=== PATIENT | female | born 1955 | race Caucasian/White ===

== ENCOUNTER 2019-10-09 09:27 | Outpatient (CLI) | payer OTHER, SELFPAY ==
--- NOTE | ~2019-10-09 | MM_ITS ---
EXAMINATION: MM screening adrian BI w kike HISTORY: Screening mammogram TECHNIQUE: Craniocaudal and mediolateral oblique 3-D tomosynthesis images were obtained and synthetic 2-D images were generated. CAD analysis was submitted and interpreted. COMPARISON: 12/12/2011 bilateral digital screening mammogram BREAST PARENCHYMAL COMPOSITION: The breasts are almost entirely fatty. FINDINGS: Occasional benign calcifications. New 5 mm opacity in the lower outer quadrant of left breast similar diagnostic left mammogram and lef t breast ultrasound examination are recommended. Otherwise there is no evidence of suspicious mass, calcification, or architectural distortion to sugg est malignancy in either breast. There has been no suspicious interval change. IMPRESSION: 1. New 5 mm opacity at lower outer quadrant of left breast 2. Diagnostic left mammogram and left breast ultrasound examination are recommended. BI-RADS Category 0: Incomplete: Needs additional imaging evaluation. Reviewed, dictated and finalized at location A. IMPRESSION: 1. New 5 mm opacity at lower outer quadrant of left breast 2. Diagnostic left mammogram and left breast ultrasound examination are recomme nded. BI-RADS Category 0: Incomplete: Needs additional imaging evaluation.
== END 2019-10-09 09:28 | disposition home or self-care (01) ==
LOC: ANHIMG 09:30
PROVIDERS: PCP Internal Medicine; Visit Provider Internal Medicine
DX: Z12.31 Encounter for screening mammogram for malignant neoplasm of breast (principal); R92.8 Other abnormal and inconclusive findings on diagnostic imaging of breast
CPT/HCPCS: 77063; 77067

== ENCOUNTER 2019-10-23 10:56 | Outpatient (CLI) | payer OTHER, SELFPAY ==
--- NOTE | ~2019-10-23 | MMUS_ITS ---
EXAMINATION: MM diagnostic mammo unilat LT, US breast LT limited HISTORY: New 5 mm mammographic opacity reported at lower outer quadrant of left breast on 6 10/09/2019 screening mammogram TECHNIQUE: Additional 3-D tomosynthesis images of the left breast were performed and synthetic 2-D im ages were generated. CAD analysis was submitted and interpreted. High resolution targeted lower outer quadrant left breast ultrasound was performed. COMPARISON: 10/09/2019 bilateral digital screening mammogram FINDINGS: MAMMOGRAPHIC FINDINGS: An approximately 5-6 mm circumscribed low-density opacity is confirmed in the lower outer quadrant of left breast at mid anteroposterior depth. ULTRASOUND: At 4:00 6 cm from the nipple corresponding to the mammographic abnormality is an oval 2.5 x 5.5 mm hy poechoic lesion without internal vascularity or posterior shadowing. The margins appear mildly irregu lar/serrated. I would recommend ultrasound-guided attempted aspiration; should aspiration not resolve this lesion, then immediate ultrasound-guided biopsy should be performed. IMPRESSION: 1. 2.5 x 5.5 mm mildly irregular hypoechoic lesion at 4:00 6 cm from nipple 2. Ultrasound-guided aspiration and if necessary biopsy is recommended BI-RADS category 4, suspicious findings. Dr. Cornejo telephoned the report to Dr. Herrera through Dr. Herrera's after hours service on 10/23/2019 at 1225 hours. Reviewed, dictated and finalized at location A. IMPRESSION: 1. 2.5 x 5.5 mm mildly irregular hypoechoic lesion at 4:00 6 cm from nipple 2. Ultrasound-guided aspiration and if necessary biopsy is recommended BI-RADS category 4, suspicious findings. Dr. Cornejo telephoned the report to Dr. Herrera through Dr. Herrera's after [facility] service on 10/23/2019 at 1225 hours. IMPRESSION: 1. 2.5 x 5.5 mm mildly irregular hypoechoic lesion at 4:00 6 cm from nipple 2. Ultrasound-guided aspiration and if necessary biopsy is recommended BI-RADS category 4, suspicious findings. Dr. Cornejo telephoned the report to Dr. Herrera through Dr. Herrera's after [facility] service on 10/23/2019 at 1225 hours.
== END 2019-10-23 10:57 | disposition home or self-care (01) ==
LOC: ANHIMG 10:57
PROVIDERS: PCP Internal Medicine; Visit Provider Internal Medicine
DX: R92.8 Other abnormal and inconclusive findings on diagnostic imaging of breast (principal)
CPT/HCPCS: 76642; 77065

== ENCOUNTER 2019-10-30 09:33 | Outpatient (CLI) | payer OTHER, SELFPAY ==
--- NOTE | ~2019-10-30 | US_ITS ---
US breast LT limited DATE: 10/30/2019 10:24 INDICATION: 2.5 x 5.5 mm mm circumscribed hypoechoic mass in the lower outer quadrant of left breast at 4:00 TECHNIQUE: Real-time imaging targeted to 4:00 6 cm from nipple COMPARISON: 10/23/2019 limited left breast ultrasound and diagnostic left mammogram FINDINGS: There is a circumscribed smooth sonolucent approximately 2.8 x 4.7 mm lesion at 4:00 6 cm f rom the nipple with minimal internal septation, most likely a benign minimally septated cyst. I discussed the findings with the patient and the high likelihood that this is benign. She was reliev ed to avoid any needlestick. I recommended that she return for a six-month follow-up targeted ultraso und at this area, to which she was readily accepting and relieved. IMPRESSION: BI-RADS Category 3: Probably benign finding. Probable minimally septated benign cyst at 4 :00 6 cm from nipple Recommendation: 6 month targeted 4:00 left breast ultrasound follow-up Reviewed, dictated and finalized at Location A. Reviewed, dictated and finalized at location A. IMPRESSION: BI-RADS Category 3: Probably benign finding. Probable minimally sep tated benign cyst at 4:00 6 cm from nipple Recommendation: 6 month targeted 4:00 left breast ultrasound follow-up
== END 2019-10-30 09:34 | disposition home or self-care (01) ==
PROVIDERS: PCP Internal Medicine; Visit Provider Internal Medicine
DX: R92.8 Other abnormal and inconclusive findings on diagnostic imaging of breast (principal)
CPT/HCPCS: 76642

== ENCOUNTER 2019-11-20 07:17 | Outpatient (CLI) | payer OTHER, SELFPAY ==
[2019-11-20 07:46] LABS: Basophils Percent Auto 0.6 % (0.2-1.2); Eosinophils Absolute Auto 0.1 K/mm3 (0-0.3); Eosinophils Percent Auto 1.4 % (0-4.4); Hematocrit 40.7 % (37.0-47.0); Immature Granulocyte Absolute 0.01 K/mm3 (0.00-0.031); Immature Granulocyte Percent A 0.2 % (0-0.5); Lymphocytes Absolute Auto 2.59 K/mm3 (0.9-3.2); Lymphocytes Percent Auto 39.1 % (18.3-44.2); Mean Corpuscular HGB Conc 31.9 g/dl (32-36); Mean Corpuscular Hemoglobin 26.9 pg (26-34); Mean Corpuscular Volume 84.3 fl (80-100); Mean Platelet Volume 9.8 fl (7.4-10.4); Monocytes Absolute Auto 0.5 K/mm3 (0.1-0.6); Monocytes Percent Auto 7.6 % (2.6-8.5); Neutrophils Absolute Auto 3.4 K/mm3 (1.3-6.7); Neutrophils Percent Auto 51.1 % (45.5-73.1); Platelet Count Result 298 k/mm3 (150-375); Red Blood Count 4.83 M/mm3 (4.2-5.4); Red Cell Distribution Width 13.6 % (11.5-14.5); White Blood Count 6.6 K/mm3 (4.5-10.0)
[2019-11-20 08:09] LABS: Alanine Aminotransferase 26 U/L (4-35); Alkaline Phosphatase 97 U/L (38-126); Aspartate Amino Transferase 36 U/L (14-36); Bilirubin,Total 0.5 mg/dL (0.2-1.3); Blood Urea Nitrogen 12 mg/dL (7-17); Calcium 9.1 mg/dL (8.4-10.2); Carbon Dioxide 28 mmol/L (22-30); Chloride 103 mmol/L (98-107); Cholesterol 206 mg/dL (0-200); Estimated Glomerular Filt Rate > 60; Glucose 86 mg/dL (65-105); HDL Direct 55 mg/dL; Magnesium 1.8 mg/dL (1.6-2.3); Potassium 3.6 mmol/L (3.4-5.0); Sodium 138 mmol/L (137-145); Triglycerides 200 mg/dL (<150)
[2019-11-20 08:18] LABS: Erythrocyte Sedimentation Rate 7 mm/hr (0-20)
[2019-11-20 08:20] LABS: LDL Cholesterol Direct 119 mg/dL
[2019-11-20 08:39] LABS: Thyroid Stimulating Hormone < 0.015 uIU/mL (0.465-4.680)
[2019-11-20 08:44] LABS: Free T4 Free Thyroxine 1.31 ng/mL (0.78-2.19)
== END 2019-11-20 07:18 | disposition home or self-care (01) ==
PROVIDERS: PCP Internal Medicine; Visit Provider Internal Medicine
DX: R53.83 Other fatigue (principal); E03.9 Hypothyroidism, unspecified; R51 Headache; I10 Essential (primary) hypertension; E78.5 Hyperlipidemia, unspecified
CPT/HCPCS: 36415; 80053; 80061; 83735; 84439; 84443; 85025; 85652

== ENCOUNTER 2020-02-15 14:36 | Outpatient (CLI) | payer OTHER, SELFPAY ==
[2020-02-15 15:05] LABS: Basophils Absolute Auto 0.1 K/mm3 (0.0-0.1); Basophils Percent Auto 0.6 % (0.2-1.2); Eosinophils Absolute Auto 0.1 K/mm3 (0-0.3); Eosinophils Percent Auto 1.4 % (0-4.4); Hematocrit 41.6 % (37.0-47.0); Hemoglobin 13.2 g/dL (12.0-15.0); Immature Granulocyte Absolute 0.03 K/mm3 (0.00-0.031); Immature Granulocyte Percent A 0.3 % (0-0.5); Lymphocytes Absolute Auto 3.83 K/mm3 (0.9-3.2); Lymphocytes Percent Auto 40.4 % (18.3-44.2); Mean Corpuscular HGB Conc 31.7 g/dl (32-36); Mean Corpuscular Volume 85.2 fl (80-100); Mean Platelet Volume 10.2 fl (7.4-10.4); Monocytes Absolute Auto 0.7 K/mm3 (0.1-0.6); Monocytes Percent Auto 7.3 % (2.6-8.5); Neutrophils Absolute Auto 4.7 K/mm3 (1.3-6.7); Platelet Count Result 337 k/mm3 (150-375); Red Blood Count 4.88 M/mm3 (4.2-5.4); Red Cell Distribution Width 13.7 % (11.5-14.5); White Blood Count 9.5 K/mm3 (4.5-10.0)
[2020-02-15 15:23] LABS: Alanine Aminotransferase 33 U/L (4-35); Alkaline Phosphatase 136 U/L (38-126); Anion Gap 9 mmol/L (8-16); Aspartate Amino Transferase 38 U/L (14-36); Bilirubin,Total 0.3 mg/dL (0.2-1.3); Blood Urea Nitrogen 13 mg/dL (7-17); Calcium 9.1 mg/dL (8.4-10.2); Carbon Dioxide 30 mmol/L (22-30); Chloride 104 mmol/L (98-107); Estimated Glomerular Filt Rate > 60; Glucose 105 mg/dL (65-105); Potassium 3.7 mmol/L (3.4-5.0); Sodium 143 mmol/L (137-145)
[2020-02-15 15:33] LABS: Erythrocyte Sedimentation Rate 15 mm/hr (0-20)
[2020-02-15 15:52] LABS: Thyroid Stimulating Hormone < 0.015 uIU/mL (0.465-4.680)
[2020-02-15 16:16] LABS: Free T4 Free Thyroxine 1.11 ng/mL (0.78-2.19)
== END 2020-02-15 14:37 | disposition home or self-care (01) ==
PROVIDERS: PCP Internal Medicine; Visit Provider Internal Medicine
DX: E03.9 Hypothyroidism, unspecified (principal); L29.9 Pruritus, unspecified; R53.83 Other fatigue
CPT/HCPCS: 36415; 80053; 84439; 84443; 85025; 85652; 86038

== ENCOUNTER 2020-09-16 11:16 | Outpatient (CLI) | payer OTHER, SELFPAY ==
--- NOTE | ~2020-09-16 | US_ITS ---
US breast LT limited DATE: 09/16/2020 11:06 INDICATION: Six-month targeted follow-up of 4:00 lesion was recommended on 10/30/2019 limited left sammy ast ultrasound examination TECHNIQUE: Targeted ultrasound of left breast at 4:00 6 cm from nipple COMPARISON: 10/30/2019 limited left breast ultrasound examination FINDINGS: 4:00 6 cm from nipple: Sonolucent 3.1 x 0.7 x 3.1 mm lesion without internal vascularity or shadowing, diminished in size compared to 2.8 x 4.7 mm measurement on 10/23/2019. The sonographic features are consistent with benign process; diminished size since 10/23/2019 further s upports benign diagnosis. IMPRESSION: BI-RADS Category 2: Benign Recommendation: Routine mammographic screening Reviewed, dictated and finalized at Location A. Reviewed, dictated and finalized at location A.
[2020-09-16 11:50] LABS: Basophils Absolute Auto 0.1 K/mm3 (0.0-0.1); Basophils Percent Auto 0.5 % (0.2-1.2); Eosinophils Absolute Auto 0.2 K/mm3 (0-0.3); Eosinophils Percent Auto 1.6 % (0-4.4); Hematocrit 40.2 % (37.0-47.0); Hemoglobin 12.7 g/dL (12.0-15.0); Immature Granulocyte Absolute 0.04 K/mm3 (0.00-0.031); Immature Granulocyte Percent A 0.4 % (0-0.5); Lymphocytes Absolute Auto 3.39 K/mm3 (0.9-3.2); Lymphocytes Percent Auto 33.8 % (18.3-44.2); Mean Corpuscular HGB Conc 31.6 g/dl (32-36); Mean Corpuscular Hemoglobin 27.8 pg (26-34); Mean Platelet Volume 10.2 fl (7.4-10.4); Monocytes Absolute Auto 0.6 K/mm3 (0.1-0.6); Monocytes Percent Auto 6.4 % (2.6-8.5); Neutrophils Absolute Auto 5.8 K/mm3 (1.3-6.7); Neutrophils Percent Auto 57.3 % (45.5-73.1); Platelet Count Result 300 k/mm3 (150-375); Red Blood Count 4.57 M/mm3 (4.2-5.4); Red Cell Distribution Width 14.5 % (11.5-14.5)
[2020-09-16 12:01] LABS: Alanine Aminotransferase 17 U/L (4-35); Albumin Level 4.2 g/dL (3.5-5.1); Alkaline Phosphatase 105 U/L (38-126); Anion Gap 5 mmol/L (8-16); Aspartate Amino Transferase 35 U/L (14-36); Bilirubin,Total 0.5 mg/dL (0.2-1.3); Blood Urea Nitrogen 14 mg/dL (7-17); Calcium 9.1 mg/dL (8.4-10.2); Carbon Dioxide 31 mmol/L (22-30); Chloride 104 mmol/L (98-107); Cholesterol 233 mg/dL (0-200); Estimated Glomerular Filt Rate > 60; Glucose 90 mg/dL (65-105); HDL Direct 59 mg/dL; Potassium 3.9 mmol/L (3.4-5.0); Sodium 140 mmol/L (137-145); Triglycerides 237 mg/dL (<150)
[2020-09-16 12:12] LABS: LDL Cholesterol Direct 136 mg/dL
[2020-09-16 12:59] LABS: Free T4 Free Thyroxine 0.51 ng/mL (0.78-2.19)
[2020-09-16 13:12] LABS: Folic Acid > 20.0 ng/mL (2.76->20)
== END 2020-09-16 11:17 | disposition home or self-care (01) ==
PROVIDERS: PCP Internal Medicine; Visit Provider Internal Medicine
DX: R93.89 Abnormal findings on diagnostic imaging of other specified body structures (principal); R53.83 Other fatigue; I10 Essential (primary) hypertension; E03.9 Hypothyroidism, unspecified; R79.89 Other specified abnormal findings of blood chemistry; R92.8 Other abnormal and inconclusive findings on diagnostic imaging of breast
CPT/HCPCS: 36415; 76642; 80053; 80061; 82607; 82746; 84439; 84443; 85025

== ENCOUNTER → 2020-09-30 11:07 | Outpatient (CLI) | payer OTHER, SELFPAY ==
--- NOTE | ~2020-09-30 | XR_ITS ---
XR shoulder RT min 2V DATE: 09/30/2020 11:38 INDICATION: Right shoulder pain TECHNIQUE: 5 views COMPARISON: 09/24/2011 right shoulder FINDINGS: There is degenerative spurring at the right acromioclavicular joint. No fracture or dislocation, periosteal reaction or bone destruction or abnormal soft tissue calcifica tion. Diffuse osteopenia. IMPRESSION: Degenerative spurring of the acromioclavicular joint Osteopenia Reviewed, dictated and finalized at location A.
== END ==
PROVIDERS: Visit Provider Internal Medicine
DX: M25.511 Pain in right shoulder (principal); M85.811 Other specified disorders of bone density and structure, right shoulder
CPT/HCPCS: 73030

== ENCOUNTER 2020-12-10 16:40 | Emergency (ER) | payer OTHER, MEDICARE, SELFPAY ==
--- NOTE | ~2020-12-10 | CT_ITS ---
EXAMINATION: CT abdomen pelvis wo con EXAM DATE: 12/10/2020 18:26 INDICATION: Left flank pain. TECHNIQUE: Spiral CT of the abdomen and pelvis was performed without contrast. Axial, coronal and sag ittal images were reviewed. The dose-length product (DLP) for this examination was 651.11 mGy-cm. T he exposure was tailored according to patient size (auto mA exposure control), and iterative reconstr uction (ASIR) was used as additional dose reduction technique. There is no prior study for compariso n. FINDINGS: There is no nephrolithiasis or hydronephrosis. The uterus is not identified and has likel y been surgically resected. The bladder is unremarkable. There is a left liver lobe cyst measuring 3.6 cm. Liver, spleen, pancreas and adrenal glands are otherwise unremarkable. There are cholecystec see clips. There is no retroperitoneal or pelvic lymphadenopathy. There is mild scattered arterio sclerotic disease. The appendix is normal. There is mild sigmoid colonic diverticulosis. There is no adjacent inflammat ory change to suggest diverticulitis. The stomach and small bowel are unremarkable. There is expecte d amount of colonic stool. No free intraperitoneal gas. The heart is normal in size. There are n o pericardial or pleural effusions. The lung bases are unremarkable. There are no osteoblastic or o steolytic lesions identified. There is mild lumbar levoscoliosis. IMPRESSION: 1. No nephrolithiasis, hydronephrosis or acute intra-abdominal findings. 2. Mild sigmoid diverticulosis. Reviewed, dictated and finalized at location A.
[2020-12-10 16:42] VITALS: BP 147/88; PULSE 67; RESP 18; TEMP 36.6; O2SAT 98
[2020-12-10 17:50] LABS: Basophils Absolute Auto 0.1 K/mm3 (0.0-0.1); Basophils Percent Auto 0.7 % (0.2-1.2); Eosinophils Absolute Auto 0.2 K/mm3 (0-0.3); Eosinophils Percent Auto 1.7 % (0-4.4); Hematocrit 41.1 % (37.0-47.0); Hemoglobin 12.9 g/dL (12.0-15.0); Immature Granulocyte Absolute 0.02 K/mm3 (0.00-0.031); Immature Granulocyte Percent A 0.2 % (0-0.5); Lymphocytes Absolute Auto 4.41 K/mm3 (0.9-3.2); Lymphocytes Percent Auto 50.5 % (18.3-44.2); Mean Corpuscular HGB Conc 31.4 g/dl (32-36); Mean Corpuscular Hemoglobin 26.7 pg (26-34); Mean Corpuscular Volume 84.9 fl (80-100); Mean Platelet Volume 10.8 fl (7.4-10.4); Monocytes Absolute Auto 0.6 K/mm3 (0.1-0.6); Monocytes Percent Auto 6.8 % (2.6-8.5); Neutrophils Absolute Auto 3.5 K/mm3 (1.3-6.7); Neutrophils Percent Auto 40.1 % (45.5-73.1); Platelet Count Result 326 k/mm3 (150-375); Red Blood Count 4.84 M/mm3 (4.2-5.4); Red Cell Distribution Width 14.8 % (11.5-14.5); White Blood Count 8.7 K/mm3 (4.5-10.0)
[2020-12-10 17:54] LABS: Add Urine Microscopic? YES; Appearance Urine Clear (Clear); Bilirubin Urine Negative (Negative); Blood Urine Negative (Negative); Calcium Oxalate Crystals Urine Present /hpf; Color Urine Amber (Yellow); Glucose Urine UA Negative (Negative); Ketones Urine Negative (Negative); Leukocyte Esterase Ur 1+ LEU/UL (Negative); Mucus Urine Moderate /lpf; Nitrate Urine Negative (Negative); Protein Urine 1+ mg/dL (Negative); Squamous Epithelial Cell Urine Occasional /hpf (Few)
[2020-12-10 17:59] LABS: Anion Gap 9 mmol/L (8-16); Blood Urea Nitrogen 10 mg/dL (7-17); Carbon Dioxide 25 mmol/L (22-30); Chloride 105 mmol/L (98-107); Estimated CRCL calculation 98 ml/min; Estimated Glomerular Filt Rate > 60; Glucose 81 mg/dL (65-110); Potassium 3.7 mmol/L (3.4-5.0); Sodium 139 mmol/L (137-145)
[2020-12-10 18:07] LABS: Specific Grav Ur 1.034 (1.001-1.035)
[2020-12-10] MEDS: ONDANSETRON INJ 4 MG/2 ML VIAL IV PUSH (18:55)
[2020-12-10] MEDS: MORPHINE SULFATE (*CRX) 2 MG/ML INJ IV PUSH (18:55)
[2020-12-10 19:09] VITALS: BP 139/78; PULSE 84; RESP 16; O2SAT 98
--- NOTE | 2020-12-10 19:31 | ED.GENADULT ---
HPI - General Adult General Chief complaint: Back Pain/Injury Stated complaint: back pain and sob Time Seen by Provider: 12/10/20 17:02 Source: patient Mode of arrival: ambulatory Limitations: no limitations History of Present Illness HPI narrative: Patient is a 65 year old female who presents complaining of left flank pain intermittent x 1 week. Denies urinary complaints. Denies known injury, however, reports that patient does often work in yard. Patient denies taking otc medications for pain prior to arrival but has been using heat pack. Patient has a history of dementia and is unable to detail all complaints. Related Data Home Medications Medication Instructions Recorded Confirmed citalopram mg 12/10/20 donepezil mg 12/10/20 memantine mg 12/10/20 Allergies Allergy/AdvReac Type Severity Reaction Status Date / Time amoxicillin Allergy Intermediate Vomiting Verified 12/10/20 16:45 Review of Systems Review of Systems: Narrative: CONSTITUTIONAL: Denies fever, chills, or sweats. EYES: Denies visual changes, redness, or discharge. ENT: Denies rhinorrhea, congestion, sore throat, or otalgia. CARDIOVASCULAR: Denies chest pain, palpitations, or edema. RESPIRATORY: Denies cough or dyspnea. GASTROINTESTINAL: Denies abdominal pain, nausea, vomiting, or diarrhea. GENITOURINARY: Denies dysuria or hematuria. SKIN: Denies rash or itching. MUSCULOSKELETAL: Reports left flank/back pain NEUROLOGIC: Denies headache, numbness, dizziness, or weakness. PSYCHIATRIC: Denies anxiety or depression. [facility] Family History Family History Father Patient's father is Sibling Patient's brother is in good health Other Diabetes mellitus Family history of arthritis Family history of malignant neoplasm Hypertension Social History Social History Smoking status: Former smoker Second hand tobacco smoke exposure: No Smoking end date: 05/20/87 Alcohol intake: current Substance use: never Gender identity (if verbalized by the patient): Female Comments At the time of signature, I have reviewed and agree with nursing past medical, surgical, social, and family history unless otherwise noted. Please see nursing chart for further information. There is no relevant family history pertinent to the presenting complaint. Exam Narrative: Exam Narrative: GENERAL: Well-appearing, well-nourished, and in no acute distress. HEAD: Normocephalic, atraumatic. EYES: EOMI. No redness or drainage. Conjunctiva are normal. ENT: Mucous membranes pink and moist. CHEST: No respiratory distress. HEART: Regular rate and rhythm. GI: Soft, nontender without rebound, or guarding. No distention. Left CVA tenderness noted with palpation MUSCULOSKELETAL: No bony tenderness. EXTREMITIES: Normal range of motion. No edema. SKIN: Warm, dry, no rash. NEURO: No focal deficits. Alert and oriented x3. Gait steady. PSYCH: Normal affect. No signs of depression or anxiety. Course Vital Signs Vital signs: Vital Signs Temperature 36.6 C 12/10/20 16:42 Pulse Rate 67 12/10/20 16:42 Respiratory Rate 18 12/10/20 16:42 Blood Pressure 147/88 H 12/10/20 16:42 Pulse Oximetry 98 12/10/20 16:42 Temperature 36.6 C 12/10/20 16:42 Pulse Rate 84 12/10/20 19:09 Respiratory Rate 16 12/10/20 19:09 Blood Pressure 139/78 12/10/20 19:09 Pulse Oximetry 98 12/10/20 19:09 Reviewed-patient is informed that they may have pre-hypertension or hypertension based on a blood pressure reading. I recommend the patient call the primary care provider listed on their discharge instructions or a physician of their choice this week to arrange follow-up for further evaluation of possible pre-hypertension or hypertension. Medical Decision Making MDM Narrative Medical decision making narrative: Patient's labs are unremar
[2020-12-10] MEDS: CYCLOBENZAPRINE HCL 10 MG TABLET PO (19:37)
[2020-12-10] MEDS: KETOROLAC 30 MG/ML VIAL (*BKC) IV PUSH (19:37)
== END 2020-12-10 19:47 | disposition home or self-care (01) ==
PROVIDERS: Emergency Medicine; Emergency Provider Nurse Practitioner; PCP Internal Medicine
DX: M54.9 Dorsalgia, unspecified (principal); F03.90 Unspecified dementia, unspecified severity, without behavioral disturbance, psychotic disturbance, mood disturbance, and anxiety; Z87.891 Personal history of nicotine dependence; R03.0 Elevated blood-pressure reading, without diagnosis of hypertension; K57.30 Diverticulosis of large intestine without perforation or abscess without bleeding
CPT/HCPCS: 36415; 74176; 80048; 81001; 85025; 96374; 96375; 99284; A9270; J1885; J2270; J2405

== ENCOUNTER → 2021-02-28 15:56 | Outpatient (CLI) | payer OTHER, MEDICARE, SELFPAY ==
--- NOTE | ~2021-02-28 | XR_ITS ---
XR hip LT min 2V DATE: 02/28/2021 16:25 INDICATION: Left hip pain TECHNIQUE: AP and lateral views COMPARISON: None FINDINGS: There is diffuse osteopenia. There is levoscoliosis and degenerative disc disease of the lumbar spine. No fracture or dislocation, avascular necrosis or bone destruction. There is normal left hip joint space. IMPRESSION: Osteopenia; no fracture or dislocation Reviewed, dictated and finalized at location B.
== END ==
PROVIDERS: PCP Internal Medicine; Visit Provider Internal Medicine
DX: M85.852 Other specified disorders of bone density and structure, left thigh (principal)
CPT/HCPCS: 73502

== ENCOUNTER → 2021-03-14 15:20 | Outpatient (CLI) | payer OTHER, MEDICARE, SELFPAY ==
--- NOTE | ~2021-03-14 | XR_ITS ---
XR shoulder RT min 2V, XR humerus RT 03/14/2021 16:48 Indication: Right shoulder normal pain Procedure: 4 views right shoulder and 2 views right humerus Comparison: No prior studies for comparison. Findings: There is mild osteoarthritis of the acromioclavicular joint. Osteopenia. Calcified granulom a right lower lung zone. No fracture, subluxation or dislocation. Impression: 1: No acute bone or joint abnormality. Reviewed, dictated and finalized at location A. Impression: 1: No acute bone or joint abnormality. Impression: 1: No acute bone or joint abnormality.
--- NOTE | ~2021-03-14 | XR_ITS ---
XR hand RT min 3V 03/14/2021 16:49 Indication: Right hand pain Procedure: 3 views right hand Comparison: No prior studies for comparison. Findings: There is mild polyarticular osteoarthritis of the interphalangeal joints. No acute fracture , subluxation or dislocation. No erosive changes. No focal soft tissue abnormality. No foreign bodies . Osteopenia. 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 Reviewed, dictated and finalized at location A. 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
--- NOTE | ~2021-03-14 | XR_ITS ---
XR cervical spine 4-5V 03/14/2021 16:49 Indication: Radiculopathy. Neck pain. Procedure: 4 view cervical spine Comparison: 10/04/2010 Findings: Straightening of cervical lordosis. There is degenerative disc disease at C3-4 through C7-T 1. No acute fracture or traumatic malalignment. There is moderate multilevel uncinate hypertrophy. [place] ng apices are normal. Odontoid process is normal. Mild levocurvature of the cervical spine. Impression: 1: Stable moderate cervical spondylosis. Reviewed, dictated and finalized at location A. Impression: 1: Stable moderate cervical spondylosis.
--- NOTE | ~2021-03-14 | XR_ITS ---
XR forearm RT 2V 03/14/2021 16:49 INDICATION: Right arm pain PROCEDURE: 2 views right forearm COMPARISON: No prior studies for comparison. FINDINGS: Fracture, dislocation or subluxation is not identified. The soft tissues appear within norm al limits. No foreign bodies are identified. IMPRESSION: 1: NO ACUTE BONE OR JOINT ABNORMALITY IDENTIFIED. Reviewed, dictated and finalized at location A.
== END ==
PROVIDERS: PCP Internal Medicine; Visit Provider Internal Medicine
DX: M19.041 Primary osteoarthritis, right hand (principal); M47.22 Other spondylosis with radiculopathy, cervical region; M25.511 Pain in right shoulder; M79.601 Pain in right arm
CPT/HCPCS: 72050; 73030; 73060; 73090; 73130

== ENCOUNTER 2021-05-15 17:56 | Emergency (ER) | payer OTHER, MEDICARE, SELFPAY ==
[2021-05-15 18:18] VITALS: BP 140/98; PULSE 80; RESP 16; TEMP 36.8; O2SAT 98
--- NOTE | 2021-05-15 20:06 | ED.NEUROSD ---
HPI - Neuro Symptoms/Deficit General Chief Complaint: Neuro Symptoms/Deficit Stated Complaint: Confusion Time Seen by Provider: 05/15/21 20:06 Source: patient Mode of arrival: ambulatory Limitations: no limitations History of Present Illness HPI Narrative: Annie Lantigua is a 66 yo female with known dementia who has been at being more confused recently and the family brought her to [facility] to have her urine checked to make sure she did have a UTI. She is being treated at [facility] for dementia and is on Aricept and the Namenda Related Data Home Medications Medication Instructions Recorded Confirmed citalopram mg 12/10/20 02/28/21 Allergies Allergy/AdvReac Type Severity Reaction Status Date / Time amoxicillin Allergy Intermediate Vomiting Verified 02/28/21 15:03 Review of Systems Review of Systems: CONSTITUTIONAL: Denies fever, chills, sweats. EYES: Denies visual changes, redness, discharge. ENT: Denies rhinorrhea, congestion, sore throat, otalgia. CARDIOVASCULAR: Denies chest pain, palpitations, edema. RESPIRATORY: Denies dyspnea, wheezing, cough GASTROINTESTINAL: Denies abdominal pain, nausea, vomiting, diarrhea. GENITOURINARY: Denies dysuria, hematuria, abnormal discharge SKIN: Denies rash or itching. NEUROLOGIC: Denies numbness, has increased confusion according to family PSYCHIATRIC: Denies anxiety or depression. PMFSH Past Medical History Medical History (Updated 05/15/21 @ 20:51 by Dayan Stern CNP) Dementia HTN (hypertension) Hypothyroidism Family History Family History Father Patient's father is Sibling Patient's brother is in good health Other Diabetes mellitus Family history of arthritis Family history of malignant neoplasm Hypertension Social History Social History Smoking status: Former smoker Second hand tobacco smoke exposure: No Smoking end date: 05/20/87 Alcohol intake: current Substance use: never Gender identity (if verbalized by the patient): Female Comments At time of signature, I agree with nursing past medical, surgical, social and family history. There is no relevant family history pertinent to the presenting complaint. Exam Narrative: GENERAL: This is a well-nourished, well-developed patient, in mild distress. HEAD: normocephalic, atraumatic. EYES: PERRL. Sclera clear/white. Vision is grossly intact. EARS: External ears normal, auditory canals clear and without drainage, TMs normal without perforation. Hearing grossly intact. NOSE: External nose normal without nasal discharge, nares without redness, no rhinorrhea. THROAT: Mucous membranes moist, posterior pharynx NECK: Neck supple, non-tender CARDIOVASCULAR: Regular rate and rhythm without murmurs, gallops, or rubs. RESPIRATORY: Clear to auscultation. Breath sounds equal bilaterally. No wheezes, rales, or rhonchi. GASTROINTESTINAL: Abdomen soft, non-tender, SKIN: warm, intact with no suspicious lesions or rash, good texture and turgor. NEURO: awake, alert, and oriented to person, place and time. There were no obvious focal neurologic abnormalities. Steady gait EXTREMITIES: Normal range of motion. BACK: Nontender without deformity Course Course Emergency Course: Patient here for evaluation of confusion UA negative for UTI. Patient has no dysuria Discussed with family medication for his anxiety and they will talk to the primary care physician about prescribing a medication Vital Signs Vital signs: Vital Signs Temperature 98.2 F 05/15/21 18:18 Pulse Rate 80 05/15/21 18:18 Respiratory Rate 16 05/15/21 18:18 Blood Pressure 140/98 H 05/15/21 18:18 Pulse Oximetry 98 05/15/21 18:18 Temperature 98.2 F 05/15/21 18:18 Pulse Rate 80 05/15/21 18:18 Respiratory Rate 16 05/15/21 18:18 Blood Pressure 140/98 H 05/15/21 18:18 Pul
== END 2021-05-15 20:13 | disposition home or self-care (01) ==
PROVIDERS: Emergency Provider Nurse Practitioner; PCP Internal Medicine
DX: F03.91 Unspecified dementia, unspecified severity, with behavioral disturbance (principal); I10 Essential (primary) hypertension; E03.9 Hypothyroidism, unspecified; Z87.891 Personal history of nicotine dependence
CPT/HCPCS: 81003; 99212; G0463

== ENCOUNTER → 2021-07-21 17:11 | Outpatient (CLI) | payer OTHER, SELFPAY ==
--- NOTE | ~2021-07-21 | MR_ITS ---
EXAMINATION: MR brain IAC wo con DATE: 07/21/2021 18:18 INDICATION: Unspecified dementia without behavioral disturbance. TECHNIQUE: Magnetic resonance imaging (MRI) of the brain, brainstem, and internal auditory canals was performed without intravenous contrast. Sequences included sagittal and axial T1-weighted FSE, axial diffusion-weighted FS EPI, axial T2*-weighted GRE, axial T2-weighted FLAIR Propeller, axial T2-weigh clarence Propeller, small [id number] coronal FIESTA, small [id number] coronal T1-weighted FSE, and s mall [id number]-ib-[id number] axial T1-weighted SPGR. Apparent diffusion coefficient (ADC) maps were created. COMPARISON: Brain MRI 01/09/2019 FINDINGS: There is no intracranial hemorrhage, acute infarction, or abnormal intracranial mass lesion . There is a prominent perivascular space in the left frontal lobe deep white matter. The ventricles are normal in size. The paranasal sinuses are clear. The orbits are normal. The internal auditory can als and inner and middle ears are normal. The mastoid air cells are normal. IMPRESSION: 1. Normal brain. Reviewed, dictated and finalized at location A. [facility] IMPRESSION: 1. Normal brain.
== END ==
PROVIDERS: PCP Internal Medicine; Visit Provider Internal Medicine
DX: F03.90 Unspecified dementia, unspecified severity, without behavioral disturbance, psychotic disturbance, mood disturbance, and anxiety (principal)
CPT/HCPCS: 70551

== ENCOUNTER 2021-11-11 08:25 | Outpatient (CLI) | payer OTHER, SELFPAY ==
--- NOTE | ~2021-11-11 | MM_ITS ---
EXAMINATION: MM screening adrian BI w kike HISTORY: Screening TECHNIQUE: Craniocaudal and mediolateral oblique 3-D tomosynthesis images were obtained and synthetic 2-D images were generated. CAD analysis was submitted and interpreted. COMPARISON: Comparison to multiple prior studies sequentially, with oldest reviewed study dated 12/11. BREAST PARENCHYMAL COMPOSITION: Breast composed of scattered areas of fibroglandular density FINDINGS: There is no evidence of suspicious mass, calcification, or architectural distortion to sugg est malignancy in either breast. There has been no suspicious interval change. IMPRESSION: 1. No mammographic evidence of malignancy. 2. Recommend routine screening mammography in one year. BI-RADS Category 1: Negative Reviewed, dictated and finalized at location A.
== END 2021-11-11 08:26 | disposition home or self-care (01) ==
PROVIDERS: PCP Internal Medicine; Visit Provider Internal Medicine
DX: Z12.31 Encounter for screening mammogram for malignant neoplasm of breast (principal)
CPT/HCPCS: 77063; 77067

== ENCOUNTER 2022-08-02 15:11 | Outpatient (CLI) | payer MEDICARE, SELFPAY ==
[2022-08-02 16:06] LABS: Bacteria Urine Rare /hpf; Calcium Oxalate Crystals Urine Present /hpf; Need Manual Microscopic Reviewed; Non Pathogenic Casts 0-2; Squamous Epithelial Cell Urine None seen /hpf (Few); WBC Urine 0-5 /hpf (0-3)
[2022-08-02 16:08] LABS: Appearance Urine Cloudy (Clear); Bilirubin Urine 1+ (Negative); Color Urine Orange (Yellow)
[2022-08-02 16:09] LABS: Leukocyte Esterase Ur 2+ LEU/UL (NEGATIVE); Nitrate Urine Positive (Negative)
[2022-08-02 16:10] LABS: Blood Urine Negative (Negative); Glucose Urine UA Negative (Negative); Ketones Urine Negative (Negative); Protein Urine Negative (Negative); Specific Grav Ur 1.015 (1.001-1.035)
[2022-08-02 16:39] LABS: Add Urine Microscopic? YES
== END 2022-08-02 15:12 | disposition home or self-care (01) ==
PROVIDERS: PCP Internal Medicine; Visit Provider Physician Assistant
DX: R41.0 Disorientation, unspecified (principal)
CPT/HCPCS: 81001; 87086; 87088